=== PATIENT | female | born 1995 | race Caucasian/White ===

== ENCOUNTER 2016-11-14 12:26 | Emergency (ER) | payer OTHER ==
[2016-11-14 12:39] VITALS: RESP 18; O2SAT 98
--- NOTE | 2016-11-14 15:01 | C.PDOC ---
History Of Present Illness 11/14/2016 21 y/o female presents to the ED complaining of a continuous headache for the past three days. Patient reports the pain is mainly on the left side of head and has been taking medication with some mild relief. She reports having similar headaches in the past and notes having headaches every two weeks. She is not seeing a neurologist. Patient denies SOB, CP, nausea, vomiting, or other complaints. Time Seen by Provider: 11/14/16 12:51 Chief Complaint (Nursing): Headache History Per: Patient History/Exam Limitations: no limitations Onset/Duration Of Symptoms: Days (3 days) Current Symptoms Are (Timing): Still Present Past Medical History Reviewed: Historical Data, Nursing Documentation, Vital Signs Vital Signs: Last Vital Signs Temp 98.1 F 11/14/16 15:20 Pulse 69 11/14/16 15:20 Resp 18 11/14/16 15:20 BP 110/72 11/14/16 15:20 Pulse Ox 98 11/17/16 04:49 - Medical History PMH: Arthritis, Asthma, Migraine Family History: States: Unknown Family Hx - Social History Hx Tobacco Use: No Hx Alcohol Use: No Hx Substance Use: Yes - Immunization History Hx Tetanus Toxoid Vaccination: No Hx Influenza Vaccination: No Hx Pneumococcal Vaccination: No Review Of Systems Constitutional: Negative for: Fever Respiratory: Negative for: Shortness of Breath Gastrointestinal: Negative for: Nausea, Vomiting Neurological: Positive for: Headache Physical Exam - Physical Exam Appears: Well, Non-toxic, No Acute Distress Skin: Normal Color, Warm, Dry Head: Atraumatic, Normacephalic Eye(s): bilateral: Normal Inspection, PERRL, EOMI Neck: Normal ROM, No Midline Cervical Tenderness, Supple Neurological/Psych: Oriented x3, Normal Speech, Normal Cognition, Normal Cranial Nerves, Normal Motor, Normal Sensation ED Course And Treatment O2 Sat by Pulse Oximetry: 98 (room air) Pulse Ox Interpretation: Normal Medical Decision Making Medical Decision Making: Plan: -- Reglan -- Reassess and disposition Re-evaluation: Discussed results and plan with patient. Patient understands results and is agreeable with plan. All questions answered.pt reports headache resolved. Disposition - Disposition Referrals: Jared Bell MD [Staff Provider] - Edin Devries MD [Staff Provider] - Disposition: HOME/ ROUTINE Disposition Time: 15:05 Condition: IMPROVED Additional Instructions: Keep a headache diary. Follow up with one of the neurologists listed. Recommend that you start taking something for pain when a headache first starts. Return to ER for any worsening symptoms Instructions: Acute Headache (ED) Forms: General Discharge Instructions, [facility] (Venezuelan), Work Excuse - Clinical Impression Clinical Impression: Headache - Scribe Statement The provider has reviewed the documentation as recorded by the Scribe 11/14/2016 Scribe Attestation: Leonor Harper MD Scribe Attestation: All medical record entries made by the Scribe were at my direction and personally dictated by me. I have reviewed the chart and agree that the record accurately reflects my personal performance of the history, physical exam, medical decision making, and the department course for this patient. I have also personally directed, reviewed, and agree with the discharge instructions and disposition.
--- NOTE | 2016-11-14 15:04 | C.PDOC ---
Time Seen by Provider: 11/14/16 12:51 Chief Complaint (Nursing): Headache Past Medical History Vital Signs: Last Vital Signs Temp 98.7 F 11/14/16 12:36 Pulse 81 11/14/16 12:36 Resp 18 11/14/16 12:36 BP 112/75 11/14/16 12:36 Pulse Ox 98 11/14/16 12:36 - Medical History PMH: Arthritis, Asthma, Migraine Family History: States: Unknown Family Hx - Social History Hx Tobacco Use: No Hx Alcohol Use: No Hx Substance Use: Yes - Immunization History Hx Tetanus Toxoid Vaccination: No Hx Influenza Vaccination: No Hx Pneumococcal Vaccination: No ED Course And Treatment O2 Sat by Pulse Oximetry: 98 Medical Decision Making Medical Decision Making: pt reports headache resolved, and wants ot go home. pt advised to keep headache diary and to f/u neurology/ Disposition Counseled Patient/Family Regarding: Diagnosis - Disposition Referrals: Edin Devries MD [Staff Provider] - Jared Bell MD [Staff Provider] - Disposition: HOME/ ROUTINE Disposition Time: 15:05 Condition: IMPROVED Additional Instructions: Keep a headache diary. Follow up with one of the neurologists listed. Recommend that you start taking something for pain when a headache first starts. Return to ER for any worsening symptoms Forms: [facility] (Finnish), General Discharge Instructions - Clinical Impression Clinical Impression: Headache
[2016-11-14 15:21] VITALS: BP 110/72; PULSE 69; TEMP 98.1
== END 2016-11-14 15:20 | disposition home or self-care (01) ==
LOC: C.ER 12:26
DX: R51 Headache (principal)
CPT/HCPCS: 96374; 99285; J2765

== ENCOUNTER 2017-04-19 01:24 | Emergency (ER) | payer OTHER ==
[2017-04-19 03:01] LABS: SQUAMOUS EPITHIAL 7 /hpf (0-5); URINE BACTERIA OCC (<OCC); URINE BILIRUBIN NEGATIVE (NEGATIVE); URINE BLOOD NEGATIVE (NEGATIVE); URINE CLARITY Hazy (Clear); URINE COLOR Yellow (YELLOW); URINE GLUCOSE (UA) NORMAL (Normal); URINE LEUKOCYTE ESTERASE NEG Leu/uL (Negative); URINE NITRATE NEGATIVE (NEGATIVE); URINE PROTEIN NEGATIVE (NEGATIVE)
[2017-04-19 03:33] VITALS: RESP 20
--- NOTE | 2017-04-19 04:59 | C.PDOC ---
History Of Present Illness 22 year old female presents to the ER after she felt like she had a mini asthma attack. Patient states she is unsure if it was an anxiety attack but notes she has a Hx of asthma and reports it felt like a mild asthma attack. Patient report she felt a brief moment of chest tightness that has resolved, however, now she feels nauseous. Denies cough, fever, or abdominal pain. Time Seen by Provider: 04/19/17 01:47 Chief Complaint (Nursing): Shortness Of Breath History Per: Patient History/Exam Limitations: no limitations Onset/Duration Of Symptoms: Days Current Symptoms Are (Timing): Still Present Current Respiratory Medications: See Home Med List Associated Symptoms: denies: Fever, Other (Cough, Abdominal pain) Recent travel outside of the [place]: No Past Medical History Reviewed: Historical Data, Nursing Documentation, Vital Signs Vital Signs: Last Vital Signs Temp 97.6 F 04/19/17 05:09 Pulse 70 04/19/17 05:09 Resp 20 04/19/17 05:09 BP 109/74 04/19/17 05:09 Pulse Ox 100 04/19/17 06:30 - Medical History PMH: Arthritis, Asthma, Bronchitis, Migraine Family History: States: Unknown Family Hx - Social History Hx Tobacco Use: No Hx Alcohol Use: No Hx Substance Use: Yes (DENIED, [employer] NOTED ABOUT PT) - Immunization History Hx Tetanus Toxoid Vaccination: No Hx Influenza Vaccination: No Hx Pneumococcal Vaccination: No Review Of Systems Constitutional: Negative for: Fever Respiratory: Positive for: Other (Chest tightness). Negative for: Cough Gastrointestinal: Positive for: Nausea. Negative for: Abdominal Pain Physical Exam - Physical Exam Appears: Non-toxic, No Acute Distress Skin: Normal Color, Warm, Dry Head: Atraumatic, Normacephalic Eye(s): bilateral: Normal Inspection Oral Mucosa: Moist Throat: Normal, No Erythema, No Other (Swelling) Chest: Symmetrical, No Tenderness Cardiovascular: Rhythm Regular Respiratory: Normal Breath Sounds, No Rales, No Rhonchi, No Wheezing Gastrointestinal/Abdominal: Soft, No Tenderness Neurological/Psych: Oriented x3, Normal Speech ED Course And Treatment O2 Sat by Pulse Oximetry: 100 (Room air) Pulse Ox Interpretation: Normal Progress Note: Urinalysis ordered, results were negative. Zofran administered, however, patient vomited in the ER, another zofran administered. On reevaluation , patient is tolerating PO and resting comfortably in the ER in no respiratory distress. Will discharge home with instructions to follow up with PMD. Disposition Counseled Patient/Family Regarding: Diagnosis, Need For Followup, Rx Given - Disposition Disposition: HOME/ ROUTINE Disposition Time: 04:57 Condition: STABLE Additional Instructions: Please follow up in clinic Increase fluids Return to ER if worse Instructions: Anxiety (ED) Forms: [email or web address] ([place]), Work Excuse - Clinical Impression Clinical Impression: Anxiety - PA / EMERGENCY ROOM ORDERLY / Resident Statement MD/DO has reviewed & agrees with the documentation as recorded. - Scribe Statement The provider has reviewed the documentation as recorded by the Scribe Tyler Fernandez All medical record entries made by the Ashibrafael were at my direction and personally dictated by me. I have reviewed the chart and agree that the record accurately reflects my personal performance of the history, physical exam, medical decision making, and the department course for this patient. I have also personally directed, reviewed, and agree with the discharge instructions and disposition.
[2017-04-19 05:11] VITALS: BP 109/74; PULSE 70; TEMP 97.6
[2017-04-19 06:27] VITALS: O2SAT 100
== END 2017-04-19 05:11 | disposition home or self-care (01) ==
LOC: C.ER 01:24
DX: F41.9 Anxiety disorder, unspecified (principal)

== ENCOUNTER 2018-01-28 17:16 | Emergency (ER) | payer SELFPAY ==
[2018-01-28 17:50] VITALS: BP 115/78; PULSE 104; RESP 18; TEMP 99.1; O2SAT 97
[2018-01-28] MEDS ORDERED: Dexamethasone 4 mg/1 ml IM STA (18:26)
[2018-01-28] MEDS ORDERED: Dexamethasone 4 mg/1 ml ONE (18:39)
--- NOTE | 2018-01-28 19:04 | C.PDOC ---
History Of Present Illness 23 y/o female presents to ED complaining of a sore throat and fever since 2-3 days ago. Patient states that she took motrin for the fever but with no relief. Denies any rash, cough, SOB, or other cold symptoms. Time Seen by Provider: 01/28/18 18:20 Chief Complaint (Nursing): ENT Problem History Per: Patient History/Exam Limitations: None Onset/Duration Of Symptoms: Days Current Symptoms Are (Timing): Still Present Past Medical History Reviewed: Historical Data, Nursing Documentation, Vital Signs Vital Signs: Last Vital Signs Temp 99.1 F 01/28/18 17:42 Pulse 104 H 01/28/18 17:42 Resp 18 01/28/18 17:42 BP 115/78 01/28/18 17:42 Pulse Ox 97 01/28/18 17:42 - Medical History PMH: Arthritis, Asthma, Bronchitis, Migraine Family History: States: No Known Family Hx - Social History Hx Tobacco Use: No Hx Alcohol Use: No Hx Substance Use: No (DENIED, [employer] NOTED ABOUT PT) - Immunization History Hx Tetanus Toxoid Vaccination: No Hx Influenza Vaccination: No Hx Pneumococcal Vaccination: No Review Of Systems Except As Marked, All Systems Reviewed And Found Negative. Constitutional: Positive for: Fever ENT: Positive for: Throat Pain Respiratory: Negative for: Cough, Shortness of Breath Gastrointestinal: Negative for: Nausea, Vomiting, Diarrhea Skin: Negative for: Rash Physical Exam - Physical Exam Appears: Non-toxic, No Acute Distress Skin: Warm, Dry, No Rash Head: Atraumatic, Normacephalic Eye(s): bilateral: Normal Inspection Ear(s): Bilateral: Normal Oral Mucosa: Moist Throat: Erythema, No Exudate, No Drooling, Other (Enlarged erythematous tonsils, airway is patent, uvula midline) Neck: Supple Lymphatic: Other (has submandibular lymphadenopathy and tenderness) Chest: Symmetrical Cardiovascular: Rhythm Regular, No Murmur Respiratory: Normal Breath Sounds, No Rales, No Rhonchi, No Wheezing Extremity: No Deformity Extremity: Bilateral: Atraumatic, Normal Color And Temperature, Normal ROM Neurological/Psych: Oriented x3, Normal Speech, Normal Motor, Normal Sensation Gait: Steady ED Course And Treatment O2 Sat by Pulse Oximetry: 97 (RA) Pulse Ox Interpretation: Normal Progress Note: Cleocin, decadron, and motrin administered. On re-evaluation, patient is resting comfortably, and is afebrile. Patient is feeling better and will be discharged home. Instructed patient to follow up with physician in 1-2 days for further evaluation and to return to ER if symptoms persist. Disposition - Disposition Referrals: Calos Wynne MD [Staff Provider] - Disposition: HOME/ ROUTINE Disposition Time: 19:02 Condition: STABLE Additional Instructions: Follow up with PMD within 1-2 days. Return to ED if feel worse. Prescriptions: Clindamycin [Cleocin] 300 mg PO Q6 #28 cap Ibuprofen [Motrin Tab] 400 mg PO Q8 #30 tab Instructions: Strep Throat (DC) Forms: [email or web address] (Armenian), Work Excuse - Clinical Impression Clinical Impression: Tonsillitis - PA / [employer]INTER [employer] / Resident Statement MD/DO has reviewed & agrees with the documentation as recorded. - Scribe Statement The provider has reviewed the documentation as recorded by the Scribe Linda Haley All medical record entries made by the Ashibrafael were at my direction and personally dictated by me. I have reviewed the chart and agree that the record accurately reflects my personal performance of the history, physical exam, medical decision making, and the department course for this patient. I have also personally directed, reviewed, and agree with the discharge instructions and disposition.
== END 2018-01-28 19:27 | disposition home or self-care (01) ==
LOC: C.ER 17:16
DX: J03.90 Acute tonsillitis, unspecified (principal)
CPT/HCPCS: 96372; 99283; J1100